=== PATIENT | female | born 1970 | race Caucasian/White ===

== ENCOUNTER 2025-05-17 07:09 | Inpatient (IN) | payer MEDICARE ==
[~2025-05-17] VITALS: Ht 162.6 cm; Wt 54.4 kg
[2025-05-17] VITALS (7 sets, daily range): BP systolic 125–142; BP diastolic 65–70; PULSE 54–65; RESP 16–18; TEMP 98.6–100.9; O2SAT 97–100
[2025-05-17] MEDS: ONDANSETRON HCL INJ 2MG/ML 2ML 2 MG/ML VIAL IV STA (07:39)
[2025-05-17] MEDS: SODIUM CHLORIDE 0.9% 1000ML 1,000 ML IV ONE (07:40)
[2025-05-17] MEDS: Morphine 4mg INJECTION 4 MG/ML INJ IV ONE (07:40)
[2025-05-17 07:46] LABS: BASOPHILS % 0.2 % (0.0-1.0); EOSINOPHILS % 0.0 % (0.0-6.0); LYMPHOCYTES % 12.8 % (18.0-39.1); MONOCYTES % 3.8 % (4.4-11.3); NEUTROPHILS % 82.9 % (38.7-80.0); RED CELL DISTRIBUTION WIDTH 15.7 % (11.7-14.4)
[2025-05-17 08:22] LABS: EST GLOMERULAR FILTRATION RATE 101.0 ML/MIN (>=60)
[2025-05-17] MEDS ORDERED: IOPAMIDOL 370 MG/ML 100 ML INFUS..BTL INJ ONE (08:32)
[2025-05-17] MEDS: CIPROFLOXACIN 400 MG/D5W 200ML 200 ML IV SCH (10:02)
[2025-05-17] MEDS: METOCLOPRAMIDE HCL 10 MG/2ML VIAL IV ONE (10:02)
[2025-05-17 10:03] LABS: LEUKOCYTE ESTERASE ,URINE NEGATIVE (NEGATIVE)
[2025-05-17] MEDS: DICYCLOMINE HCL 20 MG/2 ML VIAL IM ONE (10:03)
[2025-05-17 10:04] LABS: EPITHELIAL CELLS,URINE FEW /LPF; PROTEIN,URINE DIPSTICK NEGATIVE (NEGATIVE); URINE UROBILINOGEN 0.2 mg/dL (0.2 - 1); WBC,URINE (MAN) 0-5 /HPF (0-5)
[2025-05-17 10:05] LABS: AMPHETAMINES SCREEN,URINE NEGATIVE (NEGATIVE); CANNABINOIDS SCREEN,URINE NEGATIVE (NEGATIVE); COCAINE SCREEN,URINE NEGATIVE (NEGATIVE); METHADONE SCREEN, URINE NEGATIVE (NEGATIVE); OPIATES SCREEN,URINE POSITIVE (NEGATIVE)
[2025-05-17] MEDS: SODIUM CHLORIDE 0.9% 1000ML 1,000 ML IV SCH (12:14)
[2025-05-17] MEDS: ONDANSETRON HCL INJ 2MG/ML 2ML 2 MG/ML VIAL IV PRN (12:15)
[2025-05-17] MEDS: Morphine 2mg Syringe 2 MG/ML SYR IV PRN (12:15)
[2025-05-17] MEDS: ACETAMINOPHEN 1000 MG/100 ML IV STA (12:55)
[2025-05-17] MEDS: METRONIDAZOLE 500MG/NS 100ML 100 ML IV SCH (14:25)
[2025-05-17] MEDS ORDERED: LEVOFLOXACIN250 MG PO (14:26)
[2025-05-17] MEDS ORDERED: SIMETHICONE 80 MG CHEW PO PRN (15:00)
[2025-05-17] MEDS ORDERED: DIPHENHYDRAMINE HCL 25 MG CAP PO PRN (15:00)
[2025-05-17] MEDS ORDERED: DEXTROSE 50% SYRINGE 50 ML IV PRN (15:00)
[2025-05-17] MEDS ORDERED: BENZONATATE 100 MG CAP PO PRN (15:00)
[2025-05-17] MEDS ORDERED: ALBUTEROL/IPRATROPIUM 3 ML NEB NEB PRN (15:00)
[2025-05-17] MEDS ORDERED: HYDRALAZINE HCL 20 MG/ML VIAL IV PRN (15:00)
[2025-05-17] MEDS ORDERED: ACETAMINOPHEN 325 MG TAB PO PRN (15:00)
[2025-05-17] MEDS ORDERED: DOCUSATE SODIUM 100 MG CAP PO PRN (15:00)
[2025-05-17] MEDS ORDERED: LIDOCAINE 4% PATCH TP PRN (15:00)
[2025-05-17] MEDS ORDERED: LEVOTHYROXINE150 MC1 PO (15:55)
[2025-05-17] MEDS: ENOXAPARIN SOD INJ 40 MG/0.4 ML SYR SC SCH (16:05)
[2025-05-17] MEDS: D5NS/KCL 20MEQ 1,000 ML IV SCH (16:09)
[2025-05-17] MEDS: HYDROMORPHONE 1MG/1ML INJ IV PRN (18:19)
[2025-05-17] MEDS ORDERED: MELATONIN 5 MG TABLET PO PRN (21:00)
[2025-05-17] MEDS: METOCLOPRAMIDE HCL 10 MG/2ML VIAL IV SCH (23:54)
[2025-05-18] VITALS (9 sets, daily range): BP systolic 117–146; BP diastolic 60–76; PULSE 50–95; RESP 18; TEMP 98.2–99.7; O2SAT 97–100
[2025-05-18 06:32] LABS: BASOPHILS % 0.4 % (0.0-1.0); EOSINOPHILS % 0.0 % (0.0-6.0); LYMPHOCYTES % 23.2 % (18.0-39.1); MONOCYTES % 10.1 % (4.4-11.3); NEUTROPHILS % 66.1 % (38.7-80.0); RED CELL DISTRIBUTION WIDTH 15.9 % (11.7-14.4)
[2025-05-18 06:50] LABS: INR 1.06
[2025-05-18 07:14] LABS: EST GLOMERULAR FILTRATION RATE 103 ML/MIN (>=60)
[2025-05-18] MEDS ORDERED: PANTOPRAZOLE SOD 40 MG TABEC PO SCH (07:30)
[2025-05-18] MEDS: LEVOTHYROXINE SODIUM 75 MCG TAB PO SCH (09:33)
[2025-05-18] MEDS: POTASSIUM CHLORIDE 20 MEQ TAB CR PO PRN (12:14)
[2025-05-18 12:38] LABS: CDIFF AG QUIK CHEK NEGATIVE (NEGATIVE); CDIFF TOX QUIK CHEK NEGATIVE (NEGATIVE)
[2025-05-18] MEDS: POTASSIUM CHLORIDE 20MEQ/100ML 200 ML IV ONE (16:52)
[2025-05-18] MEDS: METOCLOPRAMIDE HCL 10 MG/2ML VIAL IV SCH (23:07)
[2025-05-19] VITALS: BP 139/67; PULSE 54; RESP 18; TEMP 99.8; O2SAT 98
[2025-05-19 04:00] VITALS: BP 143/62; PULSE 54; RESP 18; TEMP 98.8; O2SAT 99
[2025-05-19 06:13] LABS: BASOPHILS % 0.4 % (0.0-1.0); EOSINOPHILS % 0.2 % (0.0-6.0); LYMPHOCYTES % 25.8 % (18.0-39.1); MONOCYTES % 11.1 % (4.4-11.3); NEUTROPHILS % 62.1 % (38.7-80.0); RED CELL DISTRIBUTION WIDTH 15.5 % (11.7-14.4)
[2025-05-19 06:49] LABS: EST GLOMERULAR FILTRATION RATE 103 ML/MIN (>=60)
[2025-05-19 08:23] VITALS: BP 139/71; PULSE 78; RESP 18; TEMP 98.5; O2SAT 99
[2025-05-19 08:50] VITALS: BP 139/71; PULSE 78; RESP 18; TEMP 98.5; O2SAT 99
== END 2025-05-19 11:43 | disposition left against medical advice (07) | DRG 392 ==
LOC: ER 07:17 → ERHOLD 09:55 → MED/SURG2 15:44 → OBSVTOIN 17:50
PROVIDERS: ADMIT Internal Medicine; ATTEND Internal Medicine
DX: A08.4 Viral intestinal infection, unspecified (principal); N17.9 Acute kidney failure, unspecified; E86.0 Dehydration; D25.9 Leiomyoma of uterus, unspecified; E03.9 Hypothyroidism, unspecified; Z79.890 Hormone replacement therapy; Z88.0 Allergy status to penicillin; Z89.511 Acquired absence of right leg below knee; Z90.49 Acquired absence of other specified parts of digestive tract
CPT/HCPCS: 36415; 74177; 80048; 80053; 80307; 81001; 83630; 83690; 83735; 83993; 85025; 85610; 85730; 87040; 87045; 87177; 87324; 87449; 93005; 94799; 99284; J0692; J1171; J1650; J2270; J2405; J2470; J2765; J3480; J7030; Q9967

== ENCOUNTER 2025-07-12 21:30 | Emergency (ER) | payer MEDICARE ==
[~2025-07-12] VITALS: Ht 162.6 cm; Wt 52.2 kg
[~2025-07-12 21:30] MED LIST: LEVOFLOXACIN250 MG PO; LEVOTHYROXINE150 MC1 PO
[2025-07-12 22:30] VITALS: TEMP 98.7
[2025-07-13 00:25] VITALS: PULSE 87; RESP 16; O2SAT 99
== END 2025-07-13 00:39 | disposition home or self-care (01) ==
LOC: ER 07-13 00:32
DX: M79.661 Pain in right lower leg (principal); S80.821A Blister (nonthermal), right lower leg, initial encounter; Z89.511 Acquired absence of right leg below knee; E03.9 Hypothyroidism, unspecified; D64.9 Anemia, unspecified; F41.9 Anxiety disorder, unspecified; M41.9 Scoliosis, unspecified
CPT/HCPCS: 99282